=== PATIENT | female | born 1955 | race Caucasian/White ===

== ENCOUNTER 2018-12-07 12:21 | Inpatient (IN) | payer MEDICAID ==
[~2018-12-07] VITALS: Ht 167.6 cm; Wt 56.1 kg
[~2018-12-07 12:21] MED LIST: ALBU90OI INH; DOXY100T53 PO; HYDR1TAB94 PO; Prednisone20 MG PO; SPACE CHAMBER1 EACH MC
[2018-12-07 13:34] LABS: BASOPHILS ABSOLUTE AUTO 0.04 K/mm3 (0.00-0.23); BASOPHILS PERCENT AUTO 0 % (0-2); EOSINOPHILS PERCENT AUTO 0 % (0-6); Hematocrit 42.1 % (33.0-51.0); IMMATURE GRAN ABSOLUTE AUTO 0.13 K/mm3 (0.00-0.10); IMMATURE GRAN PERCENT AUTO 1 % (0-1); LYMPHOCYTES ABSOLUTE AUTO 1.19 K/mm3 (0.84-5.20); LYMPHOCYTES PERCENT AUTO 6 % (21-46); MONOCYTES ABSOLUTE AUTO 2.04 K/mm3 (0.16-1.47); MONOCYTES PERCENT AUTO 10 % (4-13); Mean Corpuscular HGB 29.9 pg (26.0-34.0); Mean Corpuscular HGB Conc 33.3 g/dL (31.5-36.5); Mean Corpuscular Volume 90 fL (80-100); Mean Platelet Volume 10.9 fL (9.1-12.4); NEUTROPHILS ABSOLUTE AUTO 17.02 K/mm3 (1.96-9.15); NEUTROPHILS PERCENT AUTO 83 % (41-73); Platelet Count 231 K/mm3 (150-400); RDW Coefficient Variation 13.8 % (11.7-14.2); RDW Standard Deviation 45.8 fL (35.1-46.3); Red Blood Cell Count 4.68 M/mm3 (3.80-5.20); White Blood Cell Count 20.42 K/mm3 (4.00-11.30)
[2018-12-07] MEDS ORDERED: ALBU90OI INH (13:41)
[2018-12-07 14:03] LABS: Alanine Aminotransfer (ALT/SGP 16 U/L (12-78); Albumin, Blood 3.2 g/dL (3.4-5.0); Albumin/Globulin Ratio 0.6 (0.8-1.8); Alk Phos 68 U/L (50-136); Anion Gap 8 mmol/L (6-16); Aspartate Aminotrans (AST/SGOT 21 U/L (12-37); Blood Urea Nitrogen 10 mg/dL (8-24); Bun/Creatinine Ratio 19.7 (12.0-20.0); CO2, Blood 24 mmol/L (21-32); Calcium, Blood 8.7 mg/dL (8.5-10.1); Chloride, Blood 97 mmol/L (98-108); Creatinine, Blood 0.51 mg/dL (0.40-1.00); Globulin, Blood 5.2 g/dL (2.2-4.0); Glomerular Filtration Rate >60 (60-); Glucose, Blood 162 mg/dL (70-99); Potassium, Blood 3.4 mmol/L (3.5-5.5); Sodium, Blood 129 mmol/L (136-145); Total Protein, Blood 8.4 g/dL (6.4-8.2)
--- NOTE | 2018-12-08 04:21 | NUR ---
SHIFT SUMMARY PT SLEPT THROUGH MUCH OF THE SHIFT THIS EVENING. REPORTING THAT SHE "JUST FELT TIRED". WOKE EASILY AND ANSWERED QUESTIONS APPROPRIATELY WHEN WOKEN. PT VERY DIAPHORETIC WHEN SLEEPING, ONE TIME BEING WORSE WHERE SHE WOKE COVERED IN SWEAT AND HAD TO CHANGE GOWN AND PARTIAL BEDDING. PT REPORT THAT SHE GETS NIGHT SWEATS AT HOME BUT NOT USUALLY THIS SEVERE. PT AFEBRILE THROUGH IT. LUNG SOUNDS TIGHT AND WHEEZY. PT REMAINED ON 2 L O2 THROUGHOUT THE NIGHT. NO COMPLAINTS OF PAIN. VSS.
[2018-12-08 05:28] LABS: BASOPHILS ABSOLUTE AUTO 0.02 K/mm3 (0.00-0.23); BASOPHILS PERCENT AUTO 0 % (0-2); EOSINOPHILS PERCENT AUTO 0 % (0-6); Hematocrit 37.5 % (33.0-51.0); Hemoglobin 12.2 g/dL (11.5-16.0); IMMATURE GRAN ABSOLUTE AUTO 0.12 K/mm3 (0.00-0.10); IMMATURE GRAN PERCENT AUTO 1 % (0-1); LYMPHOCYTES PERCENT AUTO 6 % (21-46); MONOCYTES ABSOLUTE AUTO 0.28 K/mm3 (0.16-1.47); MONOCYTES PERCENT AUTO 2 % (4-13); Mean Corpuscular HGB 29.7 pg (26.0-34.0); Mean Corpuscular HGB Conc 32.5 g/dL (31.5-36.5); Mean Corpuscular Volume 91 fL (80-100); Mean Platelet Volume 11.3 fL (9.1-12.4); NEUTROPHILS ABSOLUTE AUTO 13.93 K/mm3 (1.96-9.15); NEUTROPHILS PERCENT AUTO 91 % (41-73); Platelet Count 195 K/mm3 (150-400); RDW Standard Deviation 47.1 fL (35.1-46.3); Red Blood Cell Count 4.11 M/mm3 (3.80-5.20); White Blood Cell Count 15.25 K/mm3 (4.00-11.30)
[2018-12-08 06:18] LABS: Anion Gap 7 mmol/L (6-16); Blood Urea Nitrogen 16 mg/dL (8-24); Bun/Creatinine Ratio 33.6 (12.0-20.0); CO2, Blood 24 mmol/L (21-32); Calcium, Blood 8.2 mg/dL (8.5-10.1); Chloride, Blood 108 mmol/L (98-108); Creatinine, Blood 0.48 mg/dL (0.40-1.00); Glomerular Filtration Rate >60 (60-); Glucose, Blood 153 mg/dL (70-99); Potassium, Blood 4.4 mmol/L (3.5-5.5)
[2018-12-08 06:19] LABS: Sodium, Blood 139 mmol/L (136-145)
--- NOTE | 2018-12-08 08:09 | NUR ---
AM NOTE: ASSUMED CARE AT APPROX. 0715; BEDSIDE REPORT FROM ADENIKE SEGOVIA RN. PT SITTING UP IN BED RECEIVING A BREATHING TREATMENT. O2 SATS 96% ON 2.5 LPM VIA NC. PT STATES SHE DOES NOT WEAR O2 AT HOME. COMPLAINS OF A HEADACHE RATED 8/10. TYLENOL PROVIDED PER EMAR. DISCUSSED GOALS FOR THE DAY TO GET UP AND WALK THE HALLS AT LEAST 3 TIMES AND WEAN O2. PT TEARFUL AND REPORTS SHE'S ANXIOUS AND FEELING "OVERWHELMED" BY BEING IN THE HOSPITAL. THIS RN LISTENED TO HER CONCERNS. PT LOOKING FORWARD TO HER SON AND GRANDSON COMING TO SEE HER TODAY. NO ACUTE ISSUES AT THIS TIME. CALL LIGHT IN REACH.
--- NOTE | 2018-12-08 16:06 | NUR ---
SHIFT SUMMARY: PT WEANED OFF O2 THIS AM; SATS 93-95% ON ROOM AIR. SHE REPORTS STILL HAVING A HEADACHE, RATED 10/10 THIS AFTERNOON. IV TORADOL GIVEN PER EMAR. SHE HAS BEEN UP AMBULATING IN THE ROOM WITHOUT ISSUE. STATES SHE'S EAGER TO GO HOME. VITAL SIGNS STABLE. BEDSIDE REPORT GIVEN TO SANDY CONLEY RN ASSUMING CARE FOR REMAINDER OF SHIFT.
--- NOTE | 2018-12-08 22:25 | NUR ---
2039 STATES HAVING A HEADACHE TO TOP OF HEAD. RATING PAIN 10/10. NOTICABLY UPSET AND TEARFUL. GIVEN TORADOL PER EMAR.
--- NOTE | 2018-12-08 22:26 | NUR ---
2149 RE-ASSESSMENT OF PAIN. RATES PAIN 04/28. STATES SHE GETS HEADACHES PERIODICALLY AT HOME, BUT IS ABLE TO TAKE OTC PAIN RELIEVERS WHICH HELP. WILL CALL THEY ON-CALL AND REQUEST FROM SOMETHING STRONGER. TOLU.
--- NOTE | 2018-12-08 22:27 | NUR ---
7859 PHYSICIAN CORRESPONDENCE EXPLAIN SITUATION TO PHYSICIAN. REPORTED THAT PATIENT FEELS THOUGH HER PAIN NEEDS ARE NOT BEING MET. PHYSICIAN TO PLACE NEW ORDERS.
[2018-12-09 04:58] LABS: BASOPHILS ABSOLUTE AUTO 0.01 K/mm3 (0.00-0.23); BASOPHILS PERCENT AUTO 0 % (0-2); EOSINOPHILS PERCENT AUTO 0 % (0-6); Hematocrit 34.5 % (33.0-51.0); IMMATURE GRAN PERCENT AUTO 1 % (0-1); LYMPHOCYTES ABSOLUTE AUTO 1.28 K/mm3 (0.84-5.20); LYMPHOCYTES PERCENT AUTO 9 % (21-46); MONOCYTES ABSOLUTE AUTO 0.55 K/mm3 (0.16-1.47); MONOCYTES PERCENT AUTO 4 % (4-13); Mean Corpuscular HGB 29.6 pg (26.0-34.0); Mean Corpuscular HGB Conc 31.9 g/dL (31.5-36.5); Mean Corpuscular Volume 93 fL (80-100); Mean Platelet Volume 11.1 fL (9.1-12.4); NEUTROPHILS ABSOLUTE AUTO 11.66 K/mm3 (1.96-9.15); NEUTROPHILS PERCENT AUTO 86 % (41-73); Platelet Count 199 K/mm3 (150-400); RDW Coefficient Variation 14.1 % (11.7-14.2); RDW Standard Deviation 48.1 fL (35.1-46.3); Red Blood Cell Count 3.71 M/mm3 (3.80-5.20)
--- NOTE | 2018-12-09 04:58 | NUR ---
SHIFT SUMMARY A/O, ABLE TO MAKE NEEDS KNOWN. COOPERATIVE WITH CARE. CALLS AND ANSWERS QUESTIONS APPROPRIATELY. INDEPENDENT IN ROOM. C/O PAIN/DISCOMFORT AT BEGINNING OF SHIFT (SEE PREV JUDITH NOTE). STATES PAIN MORE MANAGEABLE AROUND 0240. NO ACUTE CHANGES OVERNIGHT. APPEARED TO REST OFF AND ON. IV FLUIDS STILL INFUSING WITHOUT COMPLICATION. REMAINS HYPERTENSIVE; APPEARS ON TREND WITH PREV PRESSURES. BED IN LOWEST POSITION. CALL LIGHT AND BELONGINGS WITHIN REACH. WCTM. REPORT TO ONCOMING RN.
[2018-12-09 05:25] LABS: Anion Gap 8 mmol/L (6-16); Blood Urea Nitrogen 16 mg/dL (8-24); Bun/Creatinine Ratio 31.6 (12.0-20.0); CO2, Blood 22 mmol/L (21-32); Calcium, Blood 7.8 mg/dL (8.5-10.1); Chloride, Blood 107 mmol/L (98-108); Creatinine, Blood 0.51 mg/dL (0.40-1.00); Glomerular Filtration Rate >60 (60-); Glucose, Blood 156 mg/dL (70-99); Sodium, Blood 137 mmol/L (136-145)
--- NOTE | 2018-12-09 12:25 | NUR ---
SPOKE TO RT SAUL- NOTED PT HAD FINE CRACKLES IN THE LUNG BASES THIS MORNING. RT NOTED THE SOUND IS MORE DIFFUSE THIS AFTERNOON. PT HAS NO S& OF DISTRESS NOTED, LUNG SOUNDS MORE CRACKLY THAN THIS AM. CALLED DR EUGENE TO SEE ABOUT DC IVF AND POSSIBLE BNP. LEFT A MESSAGE. STOPPED IVF AT THIS TIME, WILL RESUME AFTER SPEAKING WITH DR EUGENE. PT IS HALF WAY THROUGH HER 5TH LITER OF IVF AT THIS TIME.
--- NOTE | 2018-12-09 17:33 | NUR ---
SHIFT SUMMARY- PT ALERT AND ORIENTED, INDEPENDENT IN THE ROOM. NO C/O NAUSEA T/O THE SHIFT, C/O PAINFUL HEADACHE MEDICATED WITH TRAMADOL. PT STATES THIS WORKS WELL TO MANAGE HER PAIN. PT IVF DC'D. PT RECIEVED ONE DOSE IV LASIX. LUNG SOUNDS ARE MORE CLEAR THIS EVENING, PT STATES SHE FEELS LIKE SHE IS BREATHING EASIER.
--- NOTE | 2018-12-10 03:58 | NUR ---
SHIFT SUMMARY A/O, ABLE TO MAKE NEEDS KNOWN. COOPERATIVE WITH CARE. CALLS AND ANSWERS QUESTIONS APPROPRIATELY. C/O PAIN DURING SHIFT; RATED 8/10 HEADACHE. UPON RE-ASSESS STATED 2-3/10. APPEARED TO REST MUCH MORE THAN PREVIOUS SHIFT. INDEPENDENT IN THE ROOM. HYPERTENSION NOTED; HOWEVER, APPEARS ON TREND WITH PREVIOUS PRESSURES. ALL OTHER VS APPEAR WNL. NO ACUTE CHANGES OVERNIGHT. BED IN LOWEST POSITION. CALL LIGHT AND BELONGINGS WITHIN REACH. WCTM. REPORT TO ONCOMING RN.
[2018-12-10 04:54] LABS: BASOPHILS ABSOLUTE AUTO 0.01 K/mm3 (0.00-0.23); BASOPHILS PERCENT AUTO 0 % (0-2); EOSINOPHILS PERCENT AUTO 0 % (0-6); Hematocrit 32.5 % (33.0-51.0); Hemoglobin 10.7 g/dL (11.5-16.0); IMMATURE GRAN ABSOLUTE AUTO 0.16 K/mm3 (0.00-0.10); IMMATURE GRAN PERCENT AUTO 1 % (0-1); LYMPHOCYTES ABSOLUTE AUTO 2.15 K/mm3 (0.84-5.20); LYMPHOCYTES PERCENT AUTO 15 % (21-46); MONOCYTES ABSOLUTE AUTO 1.06 K/mm3 (0.16-1.47); MONOCYTES PERCENT AUTO 8 % (4-13); Mean Corpuscular HGB 29.6 pg (26.0-34.0); Mean Corpuscular HGB Conc 32.9 g/dL (31.5-36.5); Mean Corpuscular Volume 90 fL (80-100); Mean Platelet Volume 11.1 fL (9.1-12.4); NEUTROPHILS ABSOLUTE AUTO 10.68 K/mm3 (1.96-9.15); NEUTROPHILS PERCENT AUTO 76 % (41-73); Platelet Count 222 K/mm3 (150-400); RDW Coefficient Variation 14.1 % (11.7-14.2); RDW Standard Deviation 45.8 fL (35.1-46.3); Red Blood Cell Count 3.61 M/mm3 (3.80-5.20); White Blood Cell Count 14.06 K/mm3 (4.00-11.30)
[2018-12-10 05:12] LABS: Albumin, Blood 2.4 g/dL (3.4-5.0); Anion Gap 8 mmol/L (6-16); Blood Urea Nitrogen 18 mg/dL (8-24); Bun/Creatinine Ratio 35.6 (12.0-20.0); CO2, Blood 24 mmol/L (21-32); Calcium, Blood 7.9 mg/dL (8.5-10.1); Chloride, Blood 105 mmol/L (98-108); Creatinine, Blood 0.51 mg/dL (0.40-1.00); Glomerular Filtration Rate >60 (60-); Glucose, Blood 112 mg/dL (70-99); Phosphorus, Blood 2.5 mg/dL (2.5-4.9); Potassium, Blood 3.8 mmol/L (3.5-5.5); Sodium, Blood 137 mmol/L (136-145)
--- NOTE | 2018-12-10 07:28 | NUR ---
ASSUMED CARE OF PT- PT SLEEPING AT CHANGE OF SHIFT DID NOT WAKE TO STAFF ENTERING THE ROOM OR FOR BEDSIDE REPORT. PER REPORT PT HAD NO ACUTE CHANGES T/O THE NIGHT. BEDSIDE REPORT COMPLETE WITH NIGHT AQUILINO BOWLING.
--- NOTE | 2018-12-10 18:43 | NUR ---
SHIFT SUMMARY- PT HAD A OT DOSE OF IMITREX SC IN THE ABDOMEN THIS AFTERNOON. ON LAST ROUNDS SHE STATED THAT SHE WAS "FINE NOW." PT HAS BEEN MEDICATED ONE TIME FOR HER HEADACHE PRIOR TO THIS. SEE EMAR FOR TIMES. PT ALERT, ORIENTED AND INDEPENDENT IN THE ROOM. NO CURRENT C/O PAIN.
--- NOTE | 2018-12-11 04:06 | NUR ---
62 Y/O FEMALE RESTED COMFORTABLY ALL EVENING. PT ABLE AMBULATE BATHROOM AND BACK WITHOUT ISSUE. PT DENIES PAIN OR NAUSEA. PTS BED IN LOW POSITION, CALL LIGHT AT SIDE.
[2018-12-11 05:04] LABS: BASOPHILS ABSOLUTE AUTO 0.02 K/mm3 (0.00-0.23); BASOPHILS PERCENT AUTO 0 % (0-2); EOSINOPHILS PERCENT AUTO 0 % (0-6); Hematocrit 34.1 % (33.0-51.0); Hemoglobin 11.2 g/dL (11.5-16.0); IMMATURE GRAN ABSOLUTE AUTO 0.22 K/mm3 (0.00-0.10); IMMATURE GRAN PERCENT AUTO 2 % (0-1); LYMPHOCYTES ABSOLUTE AUTO 3.25 K/mm3 (0.84-5.20); LYMPHOCYTES PERCENT AUTO 31 % (21-46); MONOCYTES PERCENT AUTO 11 % (4-13); Mean Corpuscular HGB 29.9 pg (26.0-34.0); Mean Corpuscular HGB Conc 32.8 g/dL (31.5-36.5); Mean Corpuscular Volume 91 fL (80-100); Mean Platelet Volume 10.9 fL (9.1-12.4); NEUTROPHILS ABSOLUTE AUTO 5.86 K/mm3 (1.96-9.15); NEUTROPHILS PERCENT AUTO 56 % (41-73); Platelet Count 220 K/mm3 (150-400); RDW Coefficient Variation 13.9 % (11.7-14.2); RDW Standard Deviation 46.6 fL (35.1-46.3); Red Blood Cell Count 3.74 M/mm3 (3.80-5.20); White Blood Cell Count 10.55 K/mm3 (4.00-11.30)
[2018-12-11 05:30] LABS: Albumin, Blood 2.5 g/dL (3.4-5.0); Anion Gap 6 mmol/L (6-16); Blood Urea Nitrogen 8 mg/dL (8-24); Bun/Creatinine Ratio 16.1 (12.0-20.0); CO2, Blood 29 mmol/L (21-32); Calcium, Blood 7.8 mg/dL (8.5-10.1); Chloride, Blood 104 mmol/L (98-108); Glomerular Filtration Rate >60 (60-); Glucose, Blood 89 mg/dL (70-99); Phosphorus, Blood 2.1 mg/dL (2.5-4.9); Potassium, Blood 3.2 mmol/L (3.5-5.5); Sodium, Blood 139 mmol/L (136-145)
--- NOTE | 2018-12-11 10:30 | NUR ---
PATIENT WAS OFFERED A SHOWER AND DECLINED SHE IS BEING DISCHARGED LATER AND WANTS TO WAIT AND TAKE ONE AT HOME.
--- NOTE | 2018-12-11 11:42 | NUR ---
Pt. is sitting up on her bed and taking advice from her nurse in the room, pt. eports doing well encouraged her and wished hr all well.
[2018-12-11] MEDS ORDERED: ALBU2.5V5 NEB (13:37)
[2018-12-11] MEDS ORDERED: Tylenol325 MG PO (13:37)
[2018-12-11] MEDS ORDERED: ACIDOPHILUS1 EACH PO (13:39)
[2018-12-11] MEDS ORDERED: PRED10 PO (13:41)
[2018-12-11] MEDS ORDERED: AZIT500 PO (13:42)
[2018-12-11] MEDS ORDERED: BUDE10.22 INH (13:42)
[2018-12-11] MEDS ORDERED: ALBU90OI INH (13:42)
[2018-12-11] MEDS ORDERED: CEFU500T30 PO (13:43)
--- NOTE | 2018-12-11 18:17 | NUR ---
DISCHARGE NOTE PT DISCHARGED TO HOME. PT LEFT ROOM VIA WHEELCHAIR AND OBSTETRICS SPECIALIST ESCORT PRIOR TO THIS NOTE, CIRCA 1745. PT EDUCATED ON NEW MEDICATIONS AND CURRENT ILLNESS. PT INSTRUCTED TO FOLLOW UP WITH PCP PER DAYANA BUTCHER, SEE NOTE. PT WAS GIVEN VOUCHER FOR MEDICATIONS WELL. PT EXPRESSED GRATITUDE FOR THE CARE SHE RECIEVED.
== END 2018-12-11 16:54 | disposition home health service (06) | DRG 871 ==
LOC: ER 12:21 → MEDS 15:36 → ENPENDDIS 12-11 11:47 → MEDS 12-11 16:54
PROVIDERS: Physician Assistant; ADMIT Internal Medicine
DX: A41.9 Sepsis, unspecified organism (principal); J18.9 Pneumonia, unspecified organism; J44.0 Chronic obstructive pulmonary disease with (acute) lower respiratory infection; J44.1 Chronic obstructive pulmonary disease with (acute) exacerbation; E87.1 Hypo-osmolality and hyponatremia; E87.6 Hypokalemia; J84.10 Pulmonary fibrosis, unspecified; F17.210 Nicotine dependence, cigarettes, uncomplicated
CPT/HCPCS: 36415; 71046; 80048; 80053; 80069; 83605; 83690; 85025; 87070; 87205; 93005; 93010; 94640; 94760; 96365; 96367; 96375; 96376; 99285-25; J0456; J0696; J1650; J1885; J1940; J2405; J2930; J3480; J7030; J7050

== ENCOUNTER → 2020-10-14 | Outpatient (CLI) | payer OTHER ==
[~2020-10-14] MED LIST changes: +ACIDOPHILUS1 EACH PO; +ALBU2.5V5 NEB; +AZIT500 PO; +BUDE10.22 INH; +CEFU500T30 PO; +PRED10 PO; +Tylenol325 MG PO
== END | disposition home or self-care (01) ==
LOC: LAB 12:15 → LAB SHORT 12:15
DX: L30.8 Other specified dermatitis (principal)
CPT/HCPCS: 88305; 88312

== ENCOUNTER 2022-07-27 07:00 | Day surgery (SDC) | payer OTHER ==
[~2022-07-27] VITALS: Ht 167.6 cm; Wt 61.2 kg
--- NOTE | 2022-07-27 07:27 | NUR ---
07/27/22 0727 Rachel Oshea CALL LIGHT WITHIN REACH. PLEDGETT AT 0718 IN THE RIGHT EYE, TETRACAINE 0719 IN RIGHT EYE.
== END 2022-07-27 09:05 | disposition home or self-care (01) ==
LOC: ORSCSDS 07:00
PROVIDERS: Student in an Organized Health Care Education/Training Program
PROC: 08RJ3JZ Replacement of Right Lens with Synthetic Substitute, Percutaneous Approach (ICD-10-PCS; principal; 2022-07-27 08:15)
DX: H25.13 Age-related nuclear cataract, bilateral (principal); Z87.891 Personal history of nicotine dependence; J45.909 Unspecified asthma, uncomplicated; Z86.16 Personal history of COVID-19; Z79.899 Other long term (current) drug therapy
CPT/HCPCS: J2001; J2250; J3010; J7040; V2632

== ENCOUNTER 2022-08-17 06:58 | Day surgery (SDC) | payer OTHER ==
[~2022-08-17] VITALS: Ht 167.6 cm; Wt 61.3 kg
--- NOTE | 2022-08-17 09:28 | NUR ---
08/17/22 0928 Reji Orona PT REPORTED LARGE, NEW FLOATER IN OPERATIVE EYE FOLLOWING PROCEDURE. DR. RUANO WAS INFORMED AND SAID PATIENT WAS OKAY TO DISCHARGE.
== END 2022-08-17 09:10 | disposition home or self-care (01) ==
LOC: ORSCSDS 06:58
PROVIDERS: Student in an Organized Health Care Education/Training Program
PROC: 08RK3JZ Replacement of Left Lens with Synthetic Substitute, Percutaneous Approach (ICD-10-PCS; principal; 2022-08-17 08:15)
DX: H25.12 Age-related nuclear cataract, left eye (principal); I10 Essential (primary) hypertension; J44.9 Chronic obstructive pulmonary disease, unspecified; Z87.891 Personal history of nicotine dependence; F32.A Depression, unspecified; Z79.899 Other long term (current) drug therapy
CPT/HCPCS: A9270; J2001; J2250; J3010; J7040; V2632